=== PATIENT | male | born 1940 | race Caucasian/White ===

== ENCOUNTER 2023-08-16 09:06 | Outpatient (CLI) | payer MEDICARE, SELFPAY | END 2023-08-16 09:07 | disposition home or self-care (01) | PROVIDERS: PCP Family Medicine; Visit Provider Family Medicine | DX: Z00.00 Encounter for general adult medical examination without abnormal findings (principal); R00.1 Bradycardia, unspecified; Z11.59 Encounter for screening for other viral diseases | CPT/HCPCS: 80053; 86803 ==

== ENCOUNTER 2025-01-16 13:08 | Emergency (ER) | payer MEDICARE, SELFPAY ==
--- OUTSIDE RECORDS SUMMARY | 2025-01-16 13:11 | XMS_ITS | Clinical Summary ---
Author Organization [facility] Address [facility] [place] [address] Care Team Providers Care Elementary Reading Specialist Name Role Phone Unknown, Doctor Primary Care Provider Unavailabl e Allergies No known active allergies Medications triamcinolone (ARISTOCORT; KENALOG) 0.1 % creamIndication s:Rash Apply topically to affected area(s) three times daily. 80 g 2 Active Active Problems Problem Noted Date Diagnosed Date Paroxysmal atrial fibrillation 12/29/2016 Thoracic aortic aneurysm without rupture 017 Tinnitus 09/11/2014 Hyperlipidemia LDL goal <100 01/26/2011 Fatigue 07/22/2010 Elevated BP 07/22/2010 Encounters Date Type Department Care Team Description 12/30/2024 Orders Only [facility] Scanner 1 scan: (1-Ord) [facility] 12/23/2024 Telephone [facility] [address] [place] [address] August Turk, OD Questions (schedule surgery) 12/16/2024 10:20 AM IMPROVEMENT ADVISOR Office Visit [facility] [address] [place], [place] [id number] August Turk, OD Eye Exam (CEE) 12/16/2024 Travel 11/17/2024 Telephone [facility] [address] [place], [place] [phone] Minoo Gallegos PA Results 11/13/2024 9:35 AM IMPROVEMENT ADVISOR Office Visit [facility] [address] [place], [place] [phone] Minoo Gallegos PA Rash (Bilateral arms and legs x 2 weeks) 11/13/2024 Travel 11/10/2024 Travel from Last 3 Months Immunizations Immunization Administration Dates Next Due Influenza, High-dose Quadrivalent Inactivated ,09/12/2022 Pneumococcal Poly,23-Valent (Pneumovax) 01/27/20 11 Pneumococcal conj 13-Valent (Prevnar 13) 017 Tdap 12/29/2016 Social History Tobacco Use Types Packs/Day Years Used Date Smoking Tobacco: Never Smokeless Tobacco: Never Tobacco Cessation:Counseling Given: Not Answered Alcohol Use Standard Drinks/Week Comments Not Asked 0 (1 standard drink = 0.6 oz pur e alcohol) Social Connections Answer Date Recorded Do you often feel lonely or isolated from those around you? 0 11/13/2024 Financial Resource Strain Answer Date R ecorded Difficulty of Paying Living Expenses 3 11/13/2024 Difficulty of Paying Living Expenses Not on file 11/13/2024 Food Insecurity Answer Date Recorded Do you worry your food will run out before you are able to buy more? 1 11/13/2024 Transportation Needs Answer Date Record ed Does lack of transportation keep you from medica l appointments? 1 11/13/2024 Does lack of transportation keep you from work, meetings or getting things that you need? 1 11/13/2024 Housing Stability Answer Date Recorded What is your housing situation today? 1 11/13/2024 Utilities Answer Date Recorded Do you have trouble paying f or utilities (for example, heat, electricity, water, phone)? 1 11/13/2024 Sex and Gender Information Value Date Recorded Sex Assigned at Not on file Legal Sex Male 7:59 AM IMPROVEMENT ADVISOR Gender Identity Not on file Sexual Orientation Not on file Obstetrics History Last Filed Vital Signs Vital Sign Reading Time Taken Comments Blood Pressure 142/90 11/13/2024 9:51 AM IMPROVEMENT ADVISOR Pulse 66 11/13/2024 9:36 AM IMPROVEMENT ADVISOR Temperature 36.7 C (98.1 F) 07/18/2010 9:03 AM CDT Respiratory Rate - - Oxygen Saturation 97% 11/13/2024 9:36 AM IMPROVEMENT ADVISOR Inhaled Oxygen Concentration - - Weight 93.9 kg (207 lb) 11/13/2024 9:36 AM IMPROVEMENT ADVISOR Height - - Body Mass Index - - Plan of Treatment Upcoming Encounters Date Type Department Care Team (Soo st Contact Info) Description 04/13/2025 11:00 AM CDT Office Visit [facility] [address] [place] [address] [place] [address] [place] [address] Health Maintenance Due Date Last Done Comments Depression screening for age 12+ 1954 BMI (ht and wt on same day) for age 18+ 1960 Zoster (shingles) series for age 50+ (1 of 2) 1992 Medicare Wellness for age 65+ 2007 RSV vaccine for adults or pr egnancy (1 - 1-dose 75+ series) 2017 COVID-19 vaccine series ( season) 2024 12/01/2021, 02/01/2021, 01/11/2021 Influenza Vaccine (#1) 2024 Tetanus booster 12/29/2026 12/29/2016 Pneumococcal series for age 50+ Completed 7, 01/26/2011 Tdap Completed 12/29/2016 Procedures Procedure Name Priority Date/Time Associated Diagnosis Comments SCAN-EYE EXAM 12/30/2024 12:00 AM IMPROVEMENT ADVISOR CBC WITH AUTO DIFFERENTIAL Routine 11/13/2024 10:02 AM IMPROVEMENT ADVISOR Rash COMP METABOLIC PANEL Routine 11/13/2024 10:02 AM IMPROVEMENT ADVISOR Rash Elevated BP without diagnosis of hypertension Leg swelling SEDIMENTATION RATE Routine 11/13/2024 10 :02 AM IMPROVEMENT ADVISOR Rash C-REACTIVE PROTEIN Routine 11/13/2024 10 :02 AM IMPROVEMENT ADVISOR Rash ANTINUCLEAR ANTIBODY BY IFA Routine 11/13/2024 10:02 AM IMPROVEMENT ADVISOR Rash from Last 3 Months Results * SCAN-EYE EXAM (12/30/2024 12:00 AM IMPROVEMENT ADVISOR) us Scanner OTHER Final Result * SEDIMENTATION RATE (11/13/2024 10:02 AM IMPROVEMENT ADVISOR) SED RATE BY MODIFIED WESTERGREN 6 < OR = 20 mm/h [facility]in Brown Blood BLOOD SPECIMEN / Unknown 11/13/2024 10:02 AM IMPROVEMENT ADVISOR 11/13/2024 10:03 AM IMPROVEMENT ADVISOR Minoo OHARA HEMATOLOGY Final Result [employer] [facility] [address] [place] [address], [facility] [address] [place] [address] * ANTINUCLEAR ANTIBODY BY IFA (11/13/2024 10:02 AM IMPROVEMENT ADVISOR) KARI SCREEN, IFA NEGATIVE NEGATIVE [employer] Antoine Brown Comment: KARI IFA is a first line screen for detecting the presence of up to approximately 150 autoantibodies in various autoimmune diseases. A negative KARI IFA result suggests an KARI-associated autoimmune disease is not present at this time, but is not definitive. If there is high clinical suspicion for Sjogren's syndrome, testing for anti-SS-A/Ro antibody should be considered. Anti-Malou-1 antibody should be considered for clinically suspected inflammatory myopathies. AC-0: Negative International Consensus on KARI Patterns (https://doi.org/10.1515/ixca-6974-8592) For additional information, please refer to http://education.Level Chef/faq/GHP837 (This link is being provided for informational/ educational purposes only.) Blood BLOOD SPECIMEN / Unknown 11/13/2024 10:02 AM IMPROVEMENT ADVISOR 11/13/2024 10:03 AM IMPROVEMENT ADVISOR Minoo OHARA CHEMISTRY Final Result Performing Organization Address City/[facility]/ZIP Co de Phone Number [employer] [facility] [address] [facility] [place] [place] [address], [place] [phone] [facility] [address] [place] [address] * C-REACTIVE PROTEIN (11/13/2024 10:02 AM IMPROVEMENT ADVISOR) [facility] C-REACTIVE PROTEIN 7.5 <8.0 mg/L [facility] Blood BLOOD SPECIMEN / Unknown 11/13/2024 10:02 AM IMPROVEMENT ADVISOR 11/13/2024 10:03 AM IMPROVEMENT ADVISOR Minoo OHARA CHEMISTRY Final Result Performing Organization Address [facility] Co de Phone Number [employer] [facility] [address] [place] [address], [facility] [address] [place] [address] * (ABNORMAL) CBC AND DIFFERENTIAL (11/13/2024 10:02 AM IMPROVEMENT ADVISOR) [facility] WHITE BLOOD CELL COUNT 10.0 3.8 - 10.8 Thousand/u L [facility] RED BLOOD CELL COUNT 5.35 4.20 - 5.80 Million/uL [facility] HEMOGLOBIN 16.3 13.2 - 17.1 g/dL [facility] HEMATOCRIT 47.7 38.5 - 50.0 % [facility] MCV 89.2 80.0 - 100.0 fL [facility] MCH 30.5 27.0 - 33.0 pg [facility] MCHC 34.2 32.0 - 36.0 g/dL [facility] Comment: For adults, a slight decrease in the calculated MCHC value (in the range of 30 to 32 g/dL) is most likely not clinically significant; however, it should be interpreted with caution in correlation with other red cell parameters and the patient's clinical condition. RDW 13.4 11.0 - 15.0 % [facility] PLATELET COUNT 270 140 - 400 Thousand/u L [facility] MPV 11.8 7.5 - 12.5 fL [facility] ABSOLUTE NEUTROPHILS 4,000 1,500 - 7,800 cells/uL [facility] ABSOLUTE LYMPHOCYTES 3,840 850 - 3,900 cells/uL [facility] ABSOLUTE MONOCYTES 960(H) 200 - 950 cells/uL [facility] ABSOLUTE EOSINOPHILS 1,140(H) 15 - 500 cells/uL [facility] ABSOLUTE BASOPHILS 60 0 - 200 cells/uL [facility] NEUTROPHILS 40 % [facility] LYMPHOCYTES 38.4 % [facility] MONOCYTES 9.6 % [facility] EOSINOPHILS 11.4 % [facility] BASOPHILS 0.6 % [facility] Blood BLOOD SPECIMEN / Unknown 11/13/2024 10:02 AM IMPROVEMENT ADVISOR 11/13/2024 10:03 AM IMPROVEMENT ADVISOR Minoo OHARA HEMATOLOGY Final Result [employer] [facility] [address] [place] [address], [facility] [address] [place] [address] * (ABNORMAL) COMP METABOLIC PANEL (11/13/2024 10:02 AM IMPROVEMENT ADVISOR) GLUCOSE 102(H) 65 - 99 mg/dL [facility] Comment: Fasting reference interval For someone without known diabetes, a glucose value between 100 and 125 mg/dL is consistent with prediabetes and should be confirmed with a follow-up test. UREA NITROGEN (BUN) 17 7 - 25 mg/dL [facility] CREATININE 1.06 0.70 - 1.22 mg/dL [facility] EGFR 70 > OR = 60 mL/min/1. 73m2 [facility] BUN/CREATININE RATIO SEE NOTE: 6 - 22 (calc) [facility] Comment: Not Reported: BUN and Creatinine are within reference range. SODIUM 142 135 - 146 mmol/L [facility] POTASSIUM 4.5 3.5 - 5.3 mmol/L [facility] CHLORIDE 108 98 - 110 mmol/L [facility] CARBON DIOXIDE 23 20 - 32 mmol/L [facility] CALCIUM 9.3 8.6 - 10.3 mg/dL [facility] PROTEIN, TOTAL 7.2 6.1 - 8.1 g/dL [facility] ALBUMIN 4.4 3.6 - 5.1 g/dL [facility] GLOBULIN 2.8 1.9 - 3.7 g/dL (calc) [facility] ALBUMIN/GLOBULIN RATIO 1.6 1.0 - 2.5 (calc) [facility] BILIRUBIN, TOTAL 0.6 0.2 - 1.2 mg/dL [facility] ALKALINE PHOSPHATASE 105 35 - 144 U/L [facility] AST 22 10 - 35 U/L [facility] ALT 20 9 - 46 U/L [facility] Blood BLOOD SPECIMEN / Unknown 11/13/2024 10:02 AM IMPROVEMENT ADVISOR 11/13/2024 10:03 AM IMPROVEMENT ADVISOR us Minoo OHARA CHEMISTRY Final Result [employer] [facility] [address] [place] [address], [facility] [address] [place] [address] from Last 3 Months Insurance MEDICARE PB ONLY Care Teams Elementary Reading Specialist Relationship Specialty Start Date End Date Unknown, Doctor . PCP - General Unknown Physician Specialty 10/08/12
[2025-01-16 13:19] VITALS: BP 171/91; PULSE 74; RESP 16; TEMP 36.1; O2SAT 95; BMI 33.3
--- NOTE | 2025-01-16 13:33 | ED.GENADULT ---
HPI - General Adult General Chief complaint: Skin/Abscess/Foreign Body Stated complaint: Body Rash Time Seen by Provider: 01/16/25 13:09 History of Present Illness HPI narrative: Patient is a 84-year-old gentleman who comes in today with diffuse erythema of his upper lower extremities and torso with sparing of his head neck and axilla. Patient states he has been having a rash for the last week. He uses topical rpmc-yrj-lixpckj creams but no other znuo-hmi-ghaivhq regimens. Patient was seen earlier in the week and was placed on Keflex plus prednisone. No changes. The rash has become more desquamating. He has had no fevers no chills no night sweats. He has no mucous membrane involvement. No cough no fever no shortness of breath. Rash is extremely itchy and is beginning to desquamate some local scan primarily over the shoulders. Related Data Previous Rx's ?Medication ?Instructions ?Recorded nystatin 100,000 unit/gram topical 1 applic topical BID #30 grams 10/13/24 cream nystatin-triamcinolone 100,000 1 applic topical BID #60 grams 10/20/24 unit/gram-0.1 % topical ointment cephalexin 500 mg capsule 500 mg PO BID #20 caps 01/06/25 fluconazole 200 mg tablet 200 mg PO .q 72 hours #3 tabs 01/13/25 (Diflucan) nystatin-triamcinolone 100,000 1 applic topical BID #60 grams 01/13/25 unit/g-0.1 % topical cream prednisone 20 mg tablet 20 mg PO QDAY 5 days #5 tabs 01/13/25 Allergies Allergy/AdvReac Type Severity Reaction Status Date / Time No Known Allergies Allergy Unknown Unknown Verified 01/16/25 10:34 Review of Systems Status of ROS: Reports: 10 or more systems reviewed and unremarkable except as noted in History and below [facility] Medical History Yeast dermatitis ?B37.2 - Candidiasis of skin and nail (ICD-10) Dermatitis ?L30.9 - Dermatitis, unspecified (ICD-10) Cellulitis of right lower leg ?L03.115 - Cellulitis of right lower limb (ICD-10) Yeast infection of the skin ?B37.2 - Candidiasis of skin and nail (ICD-10) Elevated blood-pressure reading without diagnosis of hypertension ?R03.0 - Elevated blood-pressure reading, without diagnosis of hypertension (ICD-10) Social History Narrative: 5 children Non smoker What is your current living situation?: I presently have a place to live Problems where you live: no known problems In the past 12 months, utilities in danger of being shut off: no In past 12 months, lack of transportation kept you from medical appts, meetings, work, or getting things needed for daily living: no In the past 12 mos, have been you worried that your food would run out before you had money to buy more?: never true In the past 12 mos, the food you bought just didn't last and you didn't have money to buy more?: never true Smoking Status: Never smoker Do you use any of these nicotine containing products: None Second hand tobacco smoke exposure: No How often do you have a drink containing alcohol: never How often do you have six or more drinks on one occasion: Never AUDIT-C Alcohol total score: 0 Non-prescribed substance use: denies use How often does anyone, including family, friends and others, physically hurt you: never How often does anyone, including family, friends and others, insult or talk down to you: never How often does anyone, including family, friends and others, threaten you with harm: never How often does anyone, including family, friends and others, scream or curse at you: never service: No Exam Narrative: Exam Narrative: EXAM GENERAL: Patient appears comfortable and well. EYES: No scleral icterus. ENT: Tympanic membranes and oropharynx normal. THYROID: no thyroid nodules or thyromegaly. LYMPH: No supraclavicular or cervical lymphadenopathy. SKIN: Impressive flat erythematous scaling rash involving his entire body minus his head neck and axilla. Some desquamation noted. EXT: No dependent lower extremity pedal edema. HEART: Regular rate and rhythm with no murmurs, rubs, or gallops. LUNGS: Clear to auscultation bilaterally with no crackles or wheezes. ABD: Soft, non tender, non distended. PSYCH: Good eye contact, speech is not pressured. Const: Vital Signs, click to edit/add: Vital Signs - 24 hr 01/16/25 13:19 Temperature 97.0 F L Pulse Rate [Pulse Oximeter] 74 Respiratory Rate 16 Blood Pressure [Ri ght Upper Arm] 171/91 H Pulse Oximetry 95 Oxygen Delivery Me thod Room Air Course Vital Signs Vital signs: Initial Vital Signs Temperature 97.0 F L 01/16/25 13:19 Temperature Source Temporal Artery Scan 01/16/25 13:19 Pulse Rate 74 01/16/25 13:19 Pulse Rhythm Regular 01/16/25 13:19 Respiratory Rate 16 01/16/25 13:19 Blood Pressure 171/91 H 01/16/25 13:19 Blood Pressure Mean 117 H 01/16/25 13:19 Blood Pressure Position Sitting 01/16/25 13:19 Pulse Oximetry 95 01/16/25 13:19 Oxygen Delivery Method Room Air 01/16/25 13:19 Vital Signs Temperature 97.0 F L 01/16/25 13:19 Pulse Rate 74 01/16/25 13:19 Respiratory Rate 16 01/16/25 13:19 Blood Pressure 171/91 H 01/16/25 13:19 Pulse Oximetry 95 01/16/25 13:19 Oxygen Delivery Method Room Air 01/16/25 13:19 Temperature 97.0 F L 01/16/25 13:19 Pulse Rate 74 01/16/25 13:19 Respiratory Rate 16 01/16/25 13:19 Blood Pressure 171/91 H 01/16/25 13:19 Pulse Oximetry 95 01/16/25 13:19 Oxygen Delivery Method Room Air 01/16/25 13:19 Medical Decision Making [facility] Narrative Medical decision making narrative: Patient is a 84-year-old gentleman comes in with the impressive rash as described above. I did call over and talk to his primary physician that saw him earlier today and patient apparently has already been seen by Dermatology and has appropriate topical medications for at home. Biopsies are pending. He did have lab work today he does have slight leukocytosis but no other major findings electrolytes are stable. At this time patient is going to continue his current medication and will follow-up with dermatology as discussed. Lab Data Labs: Lab Results 01/16/25 Range/Units 13:40 WBC 11.28 H (4.50-11.00) K/uL RBC 5.12 (4.30-5.90) m/uL Hgb 15.3 (13.5-17.5) gm/dL Hct 46.0 (37.0-53.0) % MCV 90 (80-100) fL MCH 30 (26-34) pg MCHC 33 (32-36) gm/dL RDW Coeff of Gume 14.0 (11.5-15.5) % Plt Count 274 (140-440) K/uL Neut % (Auto) 55.4 (42.0-72.0) % Lymph % (Auto) 25.8 (20-44) % Jones % (Auto) 11.2 H (0.0-11.0) % Eos % (Auto) 6.9 (0.0-7.0) % Baso % (Auto) 0.4 (0.0-3.0) % Neut # (Auto) 6.20 (1.7-7.0) K/uL Lymph # (Auto) 2.90 (0.90-2.90) K/uL Jones # (Auto) 1.30 H (0.00-0.90) K/UL Eos # (Auto) 0.80 H (0.00-0.50) K/uL Baso # (Auto) 0.00 (0.00-0.30) K/uL Abs Immat Gran (auto) 0.00 (0.00-0.30) K/uL Imm/Tot Granulo (auto) 0.3 % Sodium 140 (135-149) mmol/L Potassium 4.2 (3.6-5.1) mmol/L Chloride 107 (96-114) mmol/L Carbon Dioxide 23 (20-32) mmol/L Anion Gap 10 (7-15) mEq/L BUN 17 (7-30) mg/dL Creatinine 0.8 (0.5-1.5) mg/dL Estimated Creat Clear 49.54 Estimated GFR 88 ml/min Glucose 118 H (60-115) mg/dL Calcium 8.9 (8.4-10.6) mg/dL C-Reactive Protein 0.8 (0.5-1.0) mg/dL Discharge Plan Discharge Clinical Impression: Rash Patient Disposition: Home, Self-Care Condition: Stable Instructions: Acute Rash (ED) Additional Instructions: Continue current medication Await biopsies Activity Level: No Restrictions Discharge Diet: Regular Prescriptions: No Action nystatin 100,000 unit/gram cream 1 applic topical BID Qty: 30 0RF Rx Instructions: Use up to 5 days. nystatin-triamcinolone 100,000-0.1 unit/gram-% ointment 1 applic topical BID Qty: 60 0RF Rx Instructions: bid for 7 days. cephalexin 500 mg capsule 500 mg PO BID Qty: 20 0RF fluconazole [Diflucan] 200 mg tablet 200 mg PO .q 72 hours Qty: 3 0RF nystatin-triamcinolone 100,000-0.1 unit/g-% cream 1 applic topical BID Qty: 60 0RF Rx Instructions: Use for 5-7 days, give skin a rest for 3-5 days and then may reapply. prednisone 20 mg tablet 20 mg PO QDAY 5 Days Qty: 5 0RF Follow Up/Referrals: Jonna Yanes MD [Primary Care Provider] - Stand Alone Forms: [employer] Info Instructions
[2025-01-16 13:53] LABS: Basophils Percent Auto 0.4 % (0.0-3.0); Eosinophils Percent Auto 6.9 % (0.0-7.0); Hemoglobin* 15.3 gm/dL (13.5-17.5); Immature Granulocytes Pct Auto 0.3 %; Lymphocytes Percent Auto 25.8 % (20-44); Mean Corpuscular HGB Conc 33 gm/dL (32-36); Mean Corpuscular Hemoglobin 30 pg (26-34); Mean Corpuscular Volume 90 fL (80-100); Monocytes Percent Auto 11.2 % (0.0-11.0); Neutrophils Percent Auto 55.4 % (42.0-72.0); Platelet Count* 274 K/uL (140-440); Red Blood Count 5.12 m/uL (4.30-5.90); White Blood Count* 11.28 K/uL (4.50-11.00)
[2025-01-16 13:57] LABS: Chloride* 107 mmol/L (96-114); Potassium* 4.2 mmol/L (3.6-5.1); Sodium* 140 mmol/L (135-149)
[2025-01-16 14:00] LABS: Blood Urea Nitrogen* 17 mg/dL (7-30); Creatinine* 0.8 mg/dL (0.5-1.5); Est. Creatinine Clearance* 49.54; Estimated Glomerular Filt Rate 88 ml/min
[2025-01-16 14:01] LABS: Anion Gap 10 mEq/L (7-15); Calcium* 8.9 mg/dL (8.4-10.6); Carbon Dioxide* 23 mmol/L (20-32); Glucose* 118 mg/dL (60-115); Slide Review Reflex No
[2025-01-16 14:04] LABS: C Reactive Protein* 0.8 mg/dL (0.5-1.0)
--- OUTSIDE RECORDS SUMMARY | 2025-01-16 14:40 | XMS_ITS | Clinical Summary ---
Author Organization [facility] Address Formerly [facility] [place] [address] Care Team Providers Care Credit Front Office Developer Name Role Phone Unknown, Doctor Primary Care [...] Department Care Team Description 12/30/2024 Orders Only [facility] Scanner 1 scan: (1-Ord) [facility] 12/23/2024 Telephone [facility] [address] [place] [address] August Turk, OD Questions (schedule surgery) 12/16/2024 10:20 AM PRESS SUPERVISOR Office Visit [facility] [address] [place], [place] [phone] August Turk, OD Eye Exam (CEE) 12/16/2024 Travel 11/17/2024 Telephone [facility] [address] [place], [place] [phone] Minoo Gallegos PA Results 11/13/2024 9:35 AM PRESS SUPERVISOR Office Visit [facility] [address] [place], [place] [phone] Minoo Gallegos PA Rash (Bilateral arms and [...] on file Legal Sex Male 7:59 AM PRESS SUPERVISOR Gender Identity Not on file Sexual Orientation Not on file Obstetrics History Last Filed Vital Signs Vital Sign Reading Time Taken Comments Blood Pressure 142/90 11/13/2024 9:51 AM PRESS SUPERVISOR Pulse 66 11/13/2024 9:36 AM PRESS SUPERVISOR Temperature 36.7 C (98.1 F) 07/18/2010 9:03 AM CDT Respiratory Rate - - Oxygen Saturation 97% 11/13/2024 9:36 AM PRESS SUPERVISOR Inhaled Oxygen Concentration - - Weight 93.9 kg (207 lb) 11/13/2024 9:36 AM PRESS SUPERVISOR Height - - Body Mass Index - - Plan of Treatment Upcoming Encounters Date Type Department Care Team (Soo st Contact Info) Description 04/13/2025 11:00 AM CDT Office Visit [facility] [address] [place] [address] [place] [address] [place] [address] Health Maintenance Due Date Last Done Comments [...] Diagnosis Comments SCAN-EYE EXAM 12/30/2024 12:00 AM PRESS SUPERVISOR CBC WITH AUTO DIFFERENTIAL Routine 11/13/2024 10:02 AM PRESS SUPERVISOR Rash COMP METABOLIC PANEL Routine 11/13/2024 10:02 AM PRESS SUPERVISOR Rash Elevated BP without diagnosis of hypertension Leg swelling SEDIMENTATION RATE Routine 11/13/2024 10 :02 AM PRESS SUPERVISOR Rash C-REACTIVE PROTEIN Routine 11/13/2024 10 :02 AM PRESS SUPERVISOR Rash ANTINUCLEAR ANTIBODY BY IFA Routine 11/13/2024 10:02 AM PRESS SUPERVISOR Rash from Last 3 Months Results * SCAN-EYE EXAM (12/30/2024 12:00 AM PRESS SUPERVISOR) us Scanner OTHER Final Result * SEDIMENTATION RATE (11/13/2024 10:02 AM PRESS SUPERVISOR) SED RATE BY MODIFIED WESTERGREN 6 < OR = 20 mm/h [facility] Brown Blood BLOOD SPECIMEN / Unknown 11/13/2024 10:02 AM PRESS SUPERVISOR 11/13/2024 10:03 AM PRESS SUPERVISOR Minoo OHARA HEMATOLOGY Final Result [employer] [facility] [address] [place] [address], [facility] [address] [place] [address] * ANTINUCLEAR ANTIBODY BY IFA (11/13/2024 10:02 AM PRESS SUPERVISOR) KARI SCREEN, IFA NEGATIVE NEGATIVE Ques [facility] Antoine Brown Comment: KARI IFA is a [...] AC-0: Negative International Consensus on KARI Patterns (https://doi.org/10.1515/jngp-7218-3641) For additional information, please refer to http://education.[facility]/faq/MAO689 (This link is being provided for informational/ educational purposes only.) Blood BLOOD SPECIMEN / Unknown 11/13/2024 10:02 AM PRESS SUPERVISOR 11/13/2024 10:03 AM PRESS SUPERVISOR Minoo OHARA CHEMISTRY Final Result Performing Organization Address City/[facility]/ZIP Co de Phone Number [employer] [facility] [address] [facility] [place] [address], [place] [phone] [facility] [address] [place] [address] * C-REACTIVE PROTEIN (11/13/2024 10:02 AM PRESS SUPERVISOR) [facility] C-REACTIVE PROTEIN 7.5 <8.0 mg/L [facility] Blood BLOOD SPECIMEN / Unknown 11/13/2024 10:02 AM PRESS SUPERVISOR 11/13/2024 10:03 AM PRESS SUPERVISOR Minoo OHARA CHEMISTRY Final Result Performing Organization Address [facility] Co de Phone Number [employer] [facility] [address] [place] [address], [facility] [address] [place] [address] * (ABNORMAL) CBC AND DIFFERENTIAL (11/13/2024 10:02 AM PRESS SUPERVISOR) [facility] WHITE BLOOD CELL COUNT 10.0 3.8 - [...] BLOOD SPECIMEN / Unknown 11/13/2024 10:02 AM PRESS SUPERVISOR 11/13/2024 10:03 AM PRESS SUPERVISOR Minoo OHARA HEMATOLOGY Final Result [employer] [facility] [address] [place] [address], [facility] [address] [place] [address] * (ABNORMAL) COMP METABOLIC PANEL (11/13/2024 10:02 AM PRESS SUPERVISOR) GLUCOSE 102(H) 65 - 99 mg/dL [facility] Comment: Fasting reference interval For [...] BLOOD SPECIMEN / Unknown 11/13/2024 10:02 AM PRESS SUPERVISOR 11/13/2024 10:03 AM PRESS SUPERVISOR us Minoo OHARA CHEMISTRY Final Result [employer] [facility] [address] [place] [address], [facility] [address] [place] [address] from Last 3 Months Insurance MEDICARE [place] ONLY Care Teams Credit Front Office Developer Relationship Specialty Start Date End Date Unknown, Doctor . PCP - General Unknown Physician Specialty 10/08/12
[2025-01-16 14:47] LABS: Erythrocyte SedimentationRate* 2 mm/hr (2-15)
[2025-01-16 14:51] VITALS: BP 156/74; PULSE 75; RESP 16; TEMP 36.6
== END 2025-01-16 14:52 | disposition home or self-care (01) ==
LOC: ED 14:38
PROVIDERS: Emergency Provider Internal Medicine; PCP Family Medicine
DX: R21 Rash and other nonspecific skin eruption (principal)
CPT/HCPCS: 36415; 80048; 85025; 85651; 86140; 99283